=== PATIENT | female | born 1940 | race Caucasian/White ===

== ENCOUNTER 2023-07-14 17:01 | Emergency (ER) | payer MEDICARE, BC, SELFPAY ==
[2023-07-14 17:13] VITALS: BP 171/104
--- NOTE | 2023-07-14 20:13 | ED.GENMED ---
History of Present Illness
<Shakira Carrillo PA-C - Last Filed: 07/23/23 23:09>
General
Chief Complaint: Swelling
Source: patient
Exam Limitations: none
Time Seen by Provider: 07/14/23 19:38
Nursing documentation reviewed up to this point in time: agreed with
Travel History
Have you had any contact with someone who has COVID-19?: No
Do you have any symptoms of coronavirus? Fever > 100 degrees, chills, cough, shortness of breath, sore throat, loss of taste or smell, muscle aches, or headache?: No
History of Present Illness
History of Present Illness:
Patient is a 83-year-old female with history phlebitis, DVT presenting for evaluation of atraumatic pain and swelling in left knee. Patient initially noticed symptoms about 3 days ago and reports a 'burning 'sensation along the left anterior lower
leg. Pain is present both at rest and with walking. She has noticed some swelling in her left knee. She denies any known trauma. No fever, chills, chest pain, shortness of breath.
She endorses a blood clot over 20 years ago in the left leg when she was in a cast following an orthopedic surgery. She states this pain feels different than her previous blood clot.
Patient is currently here visiting her daughter. She lives in [place] and traveled via airplane approximately 2 weeks ago. She is scheduled to return to [place] on Monday. She spoke with her primary care provider regarding symptoms who
recommended she be seen in the emergency department to rule out blood clot prior to returning to [place]. She denies any recent surgeries.
She is not on any blood thinners.
Phy Exam
<Shakira Carrillo PA-C - Last Filed: 07/23/23 23:09>
Physical Exam
Physical Exam:
General: Well appearing and non-toxic
Vitals: Vital signs stable, afebrile
HEENT: protecting airway
Neck: appears supple, no JVD
CV: Regular rate and rhythm, heart sounds normal no evidence of cyanosis
Resp: No evidence of respiratory distress, lungs clear, no accessory muscle use
Abd: Non-distended
Extremities: Swelling of left knee with some tenderness on palpation of anterior left lower leg, left lower leg neurovascular intact, DP pulses palpable and equal bilaterally
Neuro: alert and oriented, speech normal, no focal motor deficits
Psych: Normal affect
Skin: Intact, no rashes
Scores
<Shakira Carrillo PA-C - Last Filed: 07/23/23 23:09>
Heart Failure Risk
Heart Failure Risk Score: Not Applicable
Course
<Shakira Carrillo PA-C - Last Filed: 07/23/23 23:09>
Orders/Labs/Results
Orders:
Orders
07/14/23 17:18
Legs, left US [US Periph Venous LOWER Ext LT] Urgent
Comment:
Reason For Exam: left leg swelling and pain
Vital Signs
Initial and Last Documented VS:
Initial Vital Signs
Temp Pulse Resp BP Pulse Ox
98.8 F 64 20 171/104 97
07/14/23 17:13 07/14/23 17:13 07/14/23 17:13 07/14/23 17:13 07/14/23 17:13
Last Documented Vital Signs
Temp Pulse Resp BP Pulse Ox
98.8 F 60 18 163/77 96
07/14/23 17:13 07/14/23 21:06 07/14/23 21:06 07/14/23 21:06 07/14/23 21:06
<Osman Nails DO - Last Filed: 07/15/23 03:13>
Orders/Labs/Results
Orders:
Orders
07/14/23 17:18
Legs, left US [US Periph Venous LOWER Ext LT] Urgent
Comment:
Reason For Exam: left leg swelling and pain
Vital Signs
Initial and Last Documented VS:
Initial Vital Signs
Temp Pulse Resp BP Pulse Ox
98.8 F 64 20 171/104 97
07/14/23 17:13 07/14/23 17:13 07/14/23 17:13 07/14/23 17:13 07/14/23 17:13
Last Documented Vital Signs
Temp Pulse Resp BP Pulse Ox
98.8 F 60 18 163/77 96
07/14/23 17:13 07/14/23 21:06 07/14/23 21:06 07/14/23 21:06 07/14/23 21:06
<Shakira Carrillo PA-C - Last Filed: 07/23/23 23:09>
MDM/Problems Addressed
Differential Diagnosis Includes:
DVTs, joint effusion, phlebitis, ligamentous injury, fracture
MDM/Problems Addressed:
Patient is a 83-year-old female with history phlebitis, DVT presenting for evaluation of atraumatic pain and swelling in left knee. Patient initially noticed symptoms about 3 days ago and reports a 'burning 'sensation along the left anterior lower
leg with associated knee swelling. Recent travel from [place] a few weeks ago. No known trauma to leg. No chest pain, shortness of breath. Patient is hypertensive, otherwise VSS. Physical exam as documented above. Left knee with mild swelling.
Left lower extremity neurovascularly intact. Will get US to r/o DVT.
US shows no evidence of DVT but does show superficial thrombophlebitis of left leg near knee and calf. Spoke with vascular surgeon prison guard. Despite prior history of DVT - he recommends treatment with aspirin and discharge home.
Patient comfortable with this plan. Will discharge with aspirin, return precautions, and primary care follow-up. Patient comfortable with this plan.
Chronic conditions affecting care:
Prior DVT
Acute Exacerbation and/or Progression of Chronic Illness:
Thrombophlebitis,
<Shakira Carrillo PA-C - Last Filed: 07/23/23 23:09>
*Radiology
Radiology exam reviewed: radiology read reviewed
*Pulse Oximetry
Patient hypoxic: no
*Water Gas Operator Interpretation
Rate: Water Gas Operator- N/A
*Critical Care Note
Total Time (30-74mins, 75-104mins- exclusive of procedures): Not Applicable
Data Reviewed
Further Testing Considered But Not Given:
X-ray of left knee but given superficial clot seen in veins of left lower leg likely explains symptoms patient is experiencing
<Shakira Carrillo PA-C - Last Filed: 07/23/23 23:09>
Patient Management
Discussion with other providers: Clinical Trial Leader (Vascular surgeon)
ED Attending Note
<Shakira Carrillo PA-C - Last Filed: 07/23/23 23:09>
-
Portions of this chart may have been created with voice recognition software.� Occasional wrong word or��sound alike� substitutions may have occurred due to the inherent limitations of voice recognition software.
<Osman Nails, - Last Filed: 07/15/23 03:13>
ED Attending Note
Patient seen and examined by attending physician: Yes
I performed a history and physical exam of patient and discussed management with resident, I reviewed resident's note and agree with documented findings and plan of care.: Yes
ED Attending Note:
I have reviewed and agree with history and treatment plan by Shakira Carrillo. My exam revealed 83-year-old female with mild left knee edema. Patient has superficial thrombophlebitis of left leg based on ultrasound. Treat with aspirin. Follow-up
with primary care in [place].
Discharge Plan
Departure
Patient Disposition: Home (Routine Discharge)
Date of Disposition: 07/14/23
Time of Disposition: 21:28
Patient with high blood pressure during this ER visit?: Yes
Condition: Good
Covid-19: Not Applicable
Discharge Problem:
Superficial thrombophlebitis of left leg
Instructions: Superficial vein phlebitis and thrombosis
Referrals:
UNKNOWN - PT DOES,NOT KNOW [Family Provider] -
Activity Restrictions/Additional Instructions:
-Return to the emergency department with any high fevers, chest pain, shortness of breath, severe pain in left lower leg, significant redness/swelling of left lower leg, numbness/tingling of left lower leg, worsening in current symptoms, or any
other concerns
-You should take Aspirin 81mg daily and follow-up with [facility] primary care provider
-You should take Advil/Aleve as needed for discomfort
-Apply warm compresses to the affected area and elevate leg when able.
-As discussed that she should follow-up with her primary care provider when he arrived back in [place] for further evaluation of left lower leg to consider repeat ultrasound
Interventions
Interventions:
*Risk Screen - Suicide Last Done: 07/14/23 17:13
*General Assessment Last Done: 07/14/23 17:13
*Neglect/Abuse Screening Last Done: 07/14/23 17:13
ED- Fall Risk Assessment Last Done: 07/14/23 21:34
*Nursing Disposition Last Done: 07/14/23 21:32
ED- Cardiac Assessment Last Done: 07/14/23 20:57
ED- Pulmonary Assessment Last Done: 07/14/23 20:57
ED-Skin Assessment Last Done: 07/14/23 20:57
Discharge Date and Time
Discharge Date/Time: 07/14/23 21:34
[2023-07-14 21:06] VITALS: BP 163/77; BMI 36.6
== END 2023-07-14 21:34 | disposition home or self-care (01) ==
LOC: EMR 17:01
PROVIDERS: EMERGENCY PHYSICIAN Emergency Medicine
DX: I80.02 Phlebitis and thrombophlebitis of superficial vessels of left lower extremity (principal); R03.0 Elevated blood-pressure reading, without diagnosis of hypertension
CPT/HCPCS: 99284; 93971